=== PATIENT | female | born 1930 | race Caucasian/White ===

== ENCOUNTER 2017-11-21 18:17 | Emergency (ER) | payer MEDICARE, OTHER ==
[~2017-11-21] VITALS: Ht 157.5 cm; Wt 52.6 kg
[~2017-11-21 18:17] MED LIST: ALEN70TA3 PO; ASCO10002 PO; ASPI81TA52 PO; CALC1TAB78 PO; DORZ10DR21 OP; LOSA50TA6 PO; METO25TA4 PO; OMEP20CA12 PO; ROSU10TA PO
--- NOTE | 2017-11-21 18:17 | NUR ---
ARRIVAL PT ARRIVED VIA STRETCHER BY [facility] TO ER 3 C/O RIGHT SHOULDER PAIN POST FALL IN BATHTUB. PT STATES WAS ALREADY IN BATHTUB WHEN SHE SLIPPED, HITTING HER RIGHT SHOULDER ON BATHTUB. PT ONLY C/O RIGHT SHOULDER PAIN. NO ACUTE DISTRESS NOTED. EDP NOTIFIED OF PT ARRIVAL.
[2017-11-21 18:24] VITALS: BP 191/88
--- NOTE | 2017-11-21 18:47 | ER.PDOC ---
ELIJAH ABARCA MD 11/21/17 2177: General Chief Complaint: Trauma Stated Complaint: FALL Time seen by MD: 19:00 Source: patient Exam Limitations: no limitations History of Present Illness Occurred: just prior to arrival Where: home Severity: moderate Modifying Factors: pain on movement Allergies: Coded Allergies: No Known Allergies (Unverified , 06/17/14) Home Meds Reported Medications Losartan Potassium (LOSARTAN POTASSIUM) 50 Mg Tablet, 50 MG PO DAILY, TABLET 08/24/14 Rosuvastatin 10MG (CRESTOR 10MG) 10 Mg Tablet, 10 MG PO DAILY, TAB 08/24/14 Aspirin (ASPIR-LOW) 81 Mg Tablet.dr, 81 MG PO DAILY 08/24/14 Calcium Carbonate/Vitamin D3 (CALCIUM 600 + VIT D 200 TABLET) 1 Each Tablet, 1 EACH PO BID, TABLET 08/24/14 Ascorbic Acid (VITAMIN C) 1,000 Mg Tablet, 1000 MG PO DAILY, TABLET 08/24/14 Omeprazole (OMEPRAZOLE) 20 Mg Capsule.dr, 20 MG PO DAILY 06/17/14 Dorzolamide Hcl/Timolol Maleat (COSOPT EYE DROPS) 10 Ml Drops, 10 ML OP BID, DROPS 06/17/14 Alendronate Sodium (FOSAMAX) 70 Mg Tablet, 70 MG PO Q7D, TABLET 06/17/14 Metoprolol Tartrate 25MG (LOPRESSER 25MG) 25 Mg Tablet, 25 MG PO BID for HYPERTENSION, #60 TAB 06/17/14 Past Medical History Medical History: COPD, high cholesterol, hypertension Surgical History: cholecystectomy, other LMP (females 10-50): postmenopause Family History Significant Family History: no pertinent family hx Social History Smoking: non-smoker Alcohol Use: none Drug Use: none Reviewed Nursing Reviewed: Vital Signs, Abn. Noted Review of Systems All Other Systems: Reviewed and Negative Physical Exam General Appearance: Alert, No Apparent Distress Hand: nml inspection, non-tender Wrist: nml inspection, non-tender, nml ROM Forearm/Elbow: nml inspection, non-tender, nml ROM Arm/Shoulder: see diagram, tenderness, swelling, limited ROM by pain, deformity 1 - tender, ecchymosis 1 - tender Skin: warm/dry Head/ENT: nml inspection, pharynx nml Neck/Back: nml inspection, non-tender Respiratory: chest non-tender, breath sounds nml CVS: heart sounds normal Abdomen: non-tender, no organomegaly Progress Progress to dr walker Departure Disposition: 01 HOME, SELF-CARE Impression: Primary Impression: Humeral head fracture Condition: Improved Patient Instructions: Shoulder Fracture (Proximal Humerus or Glenoid)-SportsMed Referrals: [facility] (PCP) PRIMARY CARE PROVIDER Additional Instructions: Ice to area. Keep splint in place. See Dr. Schulz Friday for recheck. Return if any problems. JOLYNN CURRY 11/21/171934: General Chief Complaint: Trauma Stated Complaint: FALL Time seen by MD: 19:00 Source: patient, family Exam Limitations: no limitations History of Present Illness Initial Comments slipped while sitting in bath tub, injury to R shoulder. Occurred: just prior to arrival Where: home Severity: moderate Modifying Factors: pain on movement Allergies: Coded Allergies: No Known Allergies (Unverified , 06/17/14) Home Meds Reported Medications Losartan Potassium (LOSARTAN POTASSIUM) 50 Mg Tablet, 50 MG PO DAILY, TABLET 08/24/14 Rosuvastatin 10MG (CRESTOR 10MG) 10 Mg Tablet, 10 MG PO DAILY, TAB 08/24/14 Aspirin (ASPIR-LOW) 81 Mg Tablet.dr, 81 MG PO DAILY 08/24/14 Calcium Carbonate/Vitamin D3 (CALCIUM 600 + VIT D 200 TABLET) 1 Each Tablet, 1 EACH PO BID, TABLET 08/24/14 Ascorbic Acid (VITAMIN C) 1,000 Mg Tablet, 1000 MG PO DAILY, TABLET 08/24/14 Omeprazole (OMEPRAZOLE) 20 Mg Capsule.dr, 20 MG PO DAILY 06/17/14 Dorzolamide Hcl/Timolol Maleat (COSOPT EYE DROPS) 10 Ml Drops, 10 ML OP BID, DROPS 06/17/14 Alendronate Sodium (FOSAMAX) 70 Mg Tablet, 70 MG PO Q7D, TABLET 06/17/14 Metoprolol Tartrate 25MG (LOPRESSER 25MG) 25 Mg Tablet, 25 MG PO BID for HYPERTENSION, #60 TAB 06/17/14 Reviewed Nursing Reviewed: Vital Signs, Abn. Noted, Nursing Assessment Review of Systems Constitutional: no symptoms reported EENTM: no symptoms reported Respiratory: no symptoms reported Cardiovascular: no symptoms reported Gastrointestinal: no symptoms reported Musculoskeletal: see HPI Psychiatric/Neurological: no symptoms reported All Other Systems: Reviewed and Negative Physical Exam General Appearance: Alert, Moderate Distress Hand: nml inspection Wrist: nml inspection Forearm/Elbow: nml inspection Arm/Shoulder: tenderness, swelling, deformity Neuro/Vasc/Tendon: sensation nml, motor nml, no vascular compromise, tendon function nml Skin: warm/dry (ant. shoulder skin puckered, entrapped due to fracture edge (?) ) Head/ENT: nml inspection Neck/Back: nml inspection Respiratory: chest non-tender, breath sounds nml CVS: heart sounds normal, tachycardia Abdomen: non-tender, no organomegaly Additional Procedures Progress Fracture reduction, release of entrapped skin: Beta prep. Bupivicaine fracture hematoma block. Longitudinal traction at elbow. Entrapped skin released, no further pucker. Good distal pulse and sensation. Progress Progress Care of pt. assumed from Dr. Abarca at 1900. Fx R humeral head on Xray. Skin of ant shoulder retracted superiorly, presumably from fracture spicule. Good distal NVS and ROM. EKG/XRAY/CT/US XRAY Comments: Humeral head Fx. No disloaction. Departure Time of Disposition: 19:35 Disposition: 01 HOME, SELF-CARE Impression: Primary Impression: Humeral head fracture Condition: Improved Patient Instructions: Shoulder Fracture (Proximal Humerus or Glenoid)-SportsMed Referrals: [facility] [employer] [facility] (PCP) PRIMARY CARE PROVIDER Additional Instructions: Ice to area. Keep splint in place. See Dr. Schulz Friday for recheck. Return if any problems. Duration or Time Spent with Pa: 45 ELIJAH ABARCA MD Nov 21, 2017 18:47 JOLYNN CURRY DO Nov 21, 2017 19:35
[2017-11-21] MEDS ORDERED: SENSORCAINE-MPF 0.25% VIAL ONE (19:05)
--- NOTE | 2017-11-21 19:13 | DIREP ---
PROCEDURE:XRAY SHOULDER MIN 2 VWS-RT COMPARISON:None. INDICATIONS:fall FINDINGS: BONES:Fracture of the surgical neck of the right humerus, without significant displacement. There is mild impaction however. No other visualized fractures. JOINTS:Normal glenohumeral and acromioclavicular joints. No evidence for dislocation. SOFT TISSUES:Normal. OTHER:Normal. CONCLUSION:Impacted fracture of the surgical neck of the right humerus. Dictated by: Bolivar Najera DO on 11/21/2017 at 07:11 PM
--- NOTE | 2017-11-21 19:22 | NUR ---
SHOULDER REDUCTION NARCAIN TO R SHOULDER. SHOULDER REDUCED PER EDP.
--- NOTE | 2017-11-21 19:25 | NUR ---
SPLINT TO R SHOULDER
--- NOTE | 2017-11-21 19:30 | NUR ---
DRESSED IN GOWN AND SLIPPER SOCKS.
[2017-11-21 20:04] VITALS: BP 160/8
== END 2017-11-21 20:25 | disposition home or self-care (01) ==
LOC: ER 18:17 → EDBD 18:17 → ER 20:25
DX: S42.291A Other displaced fracture of upper end of right humerus, initial encounter for closed fracture (principal); E78.00 Pure hypercholesterolemia, unspecified; I10 Essential (primary) hypertension; J44.9 Chronic obstructive pulmonary disease, unspecified; Z79.82 Long term (current) use of aspirin; Z90.49 Acquired absence of other specified parts of digestive tract; Z79.899 Other long term (current) drug therapy; W18.2XXA Fall in (into) shower or empty bathtub, initial encounter; Y93.E1 Activity, personal bathing and showering; Y92.091 Bathroom in other non-institutional residence as the place of occurrence of the external cause; Y99.8 Other external cause status
CPT/HCPCS: 23605; 73030; 99285; J3490